=== PATIENT | female | born 1985 | race American Indian/Alaskan Native ===

== ENCOUNTER 2019-02-20 08:26 | Emergency (ER) | payer MEDICAID, OTHER ==
--- NOTE | 2019-02-20 08:35 | EDM.PDOC ---
ED HPI GENERAL MEDICAL PROBLEM - General Chief Complaint: Skin Complaint Stated Complaint: bug bite on leg Time Seen by Provider: 02/20/19 08:30 Source of Information: Reports: Patient History Limitations: Reports: No Limitations - History of Present Illness INITIAL COMMENTS - FREE TEXT/NARRATIVE: History of present illness: []Patient has had a few insect bites on her posterior left thigh with oozing but is now healing and she has another one with large surrounding erythematous raised area that is tender. There is no drainage from this wound at this time. Patient states she may have had a fever but has not measured a temperature. Patient is up-to-date with tetanus. She denies being . Review of systems: As per history of present illness and below otherwise all systems reviewed and negative. Past medical history: As per history of present illness and as reviewed below otherwise noncontributory. Surgical history: As per history of present illness and as reviewed below otherwise noncontributory. Social history: No reported history of drug or alcohol abuse. Family history: As per history of present illness and as reviewed below otherwise noncontributory. Physical exam: General: Well developed, well nourished in NAD HEENT: Atraumatic, normocephalic, pupils reactive, negative for conjunctival pallor or scleral icterus, mucous membranes moist, throat clear, neck supple, nontender, trachea midline. Lungs: Clear to auscultation, breath sounds equal bilaterally, chest nontender. Heart: S1S2, regular, negative for clicks, rubs, or JVD. Abdomen: NABS, Soft, nondistended, nontender. Negative for masses or hepatosplenomegaly. Negative for costovertebral tenderness. Pelvis: Stable nontender. Genitourinary: Deferred. Rectal: Deferred. Extremities: 12 x 10 cm raised mildly erythematous lesion on posterior left thigh there is a 1 x 1 cm indurated slightly raised erythematous area in the middle of this lesion. There is no drainage or fluctuance palpable, negative for cords or calf pain. Neurovascular unremarkable. Neuro: Awake, alert, oriented. Cranial nerves II through XII unremarkable. Cerebellum unremarkable. Motor and sensory unremarkable throughout. Exam nonfocal. Skin:warm and dry Diagnostics: Vital signs stable afebrile Therapeutics: None ED Course: Stable Impression: Cellulitis left thigh Prescriptions: Bactrim, diclofenac Plan: Take meds as directed, follow up with your primary care physician, return to ER if symptoms worsen or change. Definitive disposition and diagnosis as appropriate pending reevaluation and review of above. Left Upper Posterior Leg Pain Score (Numeric/FACES): 6 - Related Data Allergies Allergy/AdvReac Type Severity Reaction Status Date / Time No Known Allergies Allergy Verified 02/20/19 08:38 Home Meds: Home Meds Diclofenac Sodium [Voltaren] 75 mg PO BIDMEALS PRN #20 tab.cr 02/20/19 [Rx] Sulfamethoxazole/Trimethoprim [Bactrim Ds Tablet] 1 each PO BID #20 tablet 02/20 [Rx] ED ROS GENERAL - Review of Systems Review Of Systems: See Below ED EXAM, SKIN/RASH Exam: See Below Course - Vital Signs Last Recorded V/S: Last Vital Signs Temp 97.3 F 02/20/19 08:38 Pulse 72 02/20/19 08:38 Resp 15 02/20/19 08:38 BP 114/72 02/20/19 08:38 Pulse Ox 96 02/20/19 08:38 Departure - Departure Time of Disposition: 09:05 Disposition: Home, Self-Care 01 Condition: Good Clinical Impression: Insect bite of thigh Qualifiers: Encounter type: initial encounter Laterality: left Qualified Code(s): S70.362A - Insect bite (nonvenomous), left thigh, initial encounter Cellulitis Qualifiers: Site of cellulitis: extremity Site of cellulitis of extremity: lower extremity Laterality: left Qualified Code(s): L03.116 - Cellulitis of left lower limb - Discharge Information *PRESCRIPTION DRUG MONITORING PROGRAM REVIEWED*: Not Applicable *COPY OF PRESCRIPTION DRUG MONITORING REPORT IN PATIENT MATI: Not Applicable Prescriptions: Diclofenac Sodium [Voltaren] 75 mg PO BIDMEALS PRN #20 tab.cr PRN Reason: Pain Sulfamethoxazole/Trimethoprim [Bactrim Ds Tablet] 1 each PO BID #20 tablet Referrals: PCP,Unknown [Primary Care Provider] - Forms: ED Department Discharge Additional Instructions: The following information is given to patients seen in the emergency department who are being discharged to home. This information is to outline your options for follow-up care. We provide all patients seen in our emergency department with a follow-up referral. The need for follow-up, as well as the timing and circumstances, are variable depending upon the specifics of your emergency department visit. If you don't have a primary care physician on staff, we will provide you with a referral. We always advise you to contact your personal physician following an emergency department visit to inform them of the circumstance of the visit and for follow-up with them and/or the need for any referrals to a consulting specialist. The emergency department will also refer you to a specialist when appropriate. This referral assures that you have the opportunity for follow-up care with a specialist. All of these measure are taken in an effort to provide you with optimal care, which includes your follow-up. Under all circumstances we always encourage you to contact your private physician who remains a resource for coordinating your care. When calling for follow-up care, please make the office aware that this follow-up is from your recent emergency room visit. If for any reason you are refused follow-up, please contact the [facility] Emergency Department at and asked to speak to the emergency department charge nurse. Take meds as directed, follow up with your primary care physician, return to ER if symptoms worsen or change. [facility] [address] [place] [id number]
== END 2019-02-20 09:12 | disposition home or self-care (01) ==
LOC: MW.ED 08:26
DX: S70.362A Insect bite (nonvenomous), left thigh, initial encounter (principal); L03.116 Cellulitis of left lower limb; Z79.899 Other long term (current) drug therapy; W57.XXXA Bitten or stung by nonvenomous insect and other nonvenomous arthropods, initial encounter
CPT/HCPCS: 99282

== ENCOUNTER 2019-11-08 14:01 | Emergency (ER) | payer MEDICAID, OTHER ==
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
--- NOTE | 2019-11-08 15:17 | CR ---
Left knee: AP, lateral and sunrise patellar views left knee were obtained. Comparison: No previous knee exam. Medial and lateral joint compartments are maintained in height. No joint effusion is seen. Patellofemoral joint appears within normal limits. No fracture or other bony abnormality is seen. Impression: 1. No abnormality is appreciated on 3 view left knee exam. Diagnostic code #1 This report was dictated in MDT
== END 2019-11-08 15:54 | disposition home or self-care (01) ==
LOC: MW.ED 14:01
DX: S81.012A Laceration without foreign body, left knee, initial encounter (principal); V00.141A Fall from scooter (nonmotorized), initial encounter
CPT/HCPCS: 73562-26-LT; 73562-LT; 99282; 99283-25

== ENCOUNTER 2020-02-20 18:17 | Emergency (ER) | payer MEDICAID, OTHER ==
[2020-02-20] MEDS ORDERED: Albuterol/Ipratropium 3.0-0.5 MG/3 ML Neb Soln NEB ONE (18:36)
--- NOTE | 2020-02-20 19:00 | EDM.PDOC ---
<Krzysztof Desai - Last Filed: 02/20/20 18:59> ED HPI GENERAL MEDICAL PROBLEM - General Chief Complaint: Respiratory Problem Stated Complaint: CHEST CONGESTION Time Seen by Provider: 02/20/20 18:34 Source of Information: Reports: Patient History Limitations: Reports: No Limitations - History of Present Illness INITIAL COMMENTS - FREE TEXT/NARRATIVE: 34F no PMHx former TOB use presents for cough, congestion, lethargy, generalized weakness x3 days. Worsening. No fevers. No N/V. No sore throat. No known covid exposure. body, joints Pain Score (Numeric/FACES): 4 - Related Data Allergies Allergy/AdvReac Type Severity Reaction Status Date / Time No Known Allergies Allergy Verified 02/20/20 18:29 Home Meds: Home Meds Albuterol Sulfate [Proair Respiclick] 90 mcg IH Q6HR PRN #1 canister 02/20/20 [Rx] Multivitamin [Multivitamins] 1 tab PO DAILY 02/20/20 [History] predniSONE [Prednisone] 60 mg PO DAILY 5 Days #15 tablet 02/20/20 [Rx] Past Medical History - Past Health History Medical/Surgical History: Denies Medical/Surgical History HEENT History: Reports: None Cardiovascular History: Reports: None Respiratory History: Reports: None Gastrointestinal History: Reports: None Genitourinary History: Reports: None 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: 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: None Musculoskeletal History: Reports: None Neurological History: Reports: None Psychiatric History: Reports: None Endocrine/Metabolic History: Reports: None Hematologic History: Reports: None Immunologic History: Reports: None Oncologic (Cancer) History: Reports: None Dermatologic History: Reports: None - Infectious Disease History Infectious Disease History: Reports: Chicken Pox - Past Surgical History Head Surgeries/Procedures: Reports: None Social & Family History - Family History Family Medical History: Noncontributory - Tobacco Use Smoking Status *Q: Former Smoker Used Tobacco, but Quit: Yes Month/Year Tobacco Last Used: November 2019 - Caffeine Use Caffeine Use: Reports: Coffee - Recreational Drug Use Recreational Drug Use: No ED ROS GENERAL - Review of Systems Review Of Systems: Comprehensive ROS is negative, except as noted in HPI. ED EXAM, GENERAL - Physical Exam Exam: See Below Exam Limited By: No Limitations General Appearance: Alert, WD/WN, No Apparent Distress Throat/Mouth: Normal Voice, No Airway Compromise Head: Atraumatic, Normocephalic Neck: Normal Inspection Respiratory/Chest: No Respiratory Distress, Rhonchi, Wheezing Cardiovascular: Normal Peripheral Pulses, Regular Rate, Rhythm, No Edema Extremities: Normal Inspection Neurological: Alert Psychiatric: Normal Affect, Normal Mood Skin Exam: Warm, Dry, Intact, Normal Color, No Rash Course - Re-Assessments/Exams Free Text/Narrative Re-Assessment/Exam: 02/20/20 19:00 Will get CXR and covid swab. Will give duoneb. Will sign out ot [facility] ED doctor to f/u results and reassessment Departure - Departure Disposition: Home, Self-Care 01 Clinical Impression: Bronchitis - Discharge Information Prescriptions: predniSONE [Prednisone] 60 mg PO DAILY 5 Days #15 tablet Albuterol Sulfate [Proair Respiclick] 90 mcg IH Q6HR PRN #1 canister PRN Reason: Dyspnea Instructions: Shortness of Breath, Adult, [id number], Upper Respiratory Infection, Adult, [id number], Metered Dose Inhaler (No Spacer Used), Acute Bronchitis, Adult, [id number], How to Use a Dry Powder Inhaler Referrals: Jessica Salas, [employer] [Primary Care Provider] - (followup as needed) Forms: ED Department Discharge Additional Instructions: Your chest x-ray and COVID swab were both negative for any signs of pneumonia or coronavirus. You may use the albuterol inhaler as needed. Please take the prednisone for the next 4 to 5 days, for 60 mg once daily. Return to the ER if you develop any worsening difficulty breathing. The following information is given to patients seen in the emergency department who are being discharged to home. This information is to outline your options for follow-up care. We provide all patients seen in our emergency department with a follow-up referral. The need for follow-up, as well as the timing and circumstances, are variable depending upon the specifics of your emergency department visit. If you don't have a primary care physician on staff, we will provide you with a referral. We always advise you to contact your personal physician following an emergency department visit to inform them of the circumstance of the visit and for follow-up with them and/or the need for any referrals to a consulting specialist. The emergency department will also refer you to a specialist when appropriate. This referral assures that you have the opportunity for follow-up care with a specialist. All of these measure are taken in an effort to provide you with optimal care, which includes your follow-up. Under all circumstances we always encourage you to contact your private rachel catan who remains a resource for coordinating your care. When calling for follow-up care, please make the office aware that this follow-up is from your recent emergency room visit. If for any reason you are refused follow-up, please contact the [facility] Emergency Department at and asked to speak to the emergency department charge nurse. Sepsis Event Note (ED) - Evaluation Sepsis Screening Result: No Definite Risk <Leah Fitzpatrick - Last Filed: 02/20/20 19:54> Course - Vital Signs Text/Narrative:: Patient signed out to me at 7 PM, pending x-ray, COVID swab and symptomatic rel ief. X-ray negative. COVID swab negative, and patient feeling much better after nebulizer treatment. She did just quit smoking 3 months ago and she does also report that she was just staining her deck and felt she may have been exposed to some fumes prior to the onset of her symptoms. Last Recorded V/S: Last Vital Signs Temp 96.3 F L 02/20/20 18:26 Pulse 63 02/20/20 18:26 Resp 18 02/20/20 18:26 BP 114/69 02/20/20 18:26 Pulse Ox 96 02/20/20 18:26 - Orders/Labs/Meds Orders: Active Orders 24 hr Category Date Time Status RT Aerosol Therapy [RC] ASDIRECTED Care 02/20/20 18:37 Active predniSONE Med 02/20/20 19:51 Once 60 mg PO ONETIME ONE Labs: Laboratory Tests 02/20/20 Range/Units 19:00 COVID-19 ([facility]) NEGATIVE (NEGATIVE) Meds: Medications Discontinued Medications Generic Name Dose Route Start Last Admin Trade Name Freq PRN Reason Stop Dose Admin Albuterol/Ipratropium 3 ml 02/20/20 18:36 02/20/20 18:47 Duoneb 3.0-0.5 Mg/3 Ml NEB 02/20/20 18:37 3 ml ONETIME ONE Administration Prednisone 60 mg 02/20/20 19:51 Prednisone PO 02/20/20 19:52 ONETIME ONE - Re-Assessments/Exams Free Text/Narrative Re-Assessment/Exam: 02/20/20 19:52 Reports she is feeling much better on reassessment. She has no difficulty breathing. Discussed all results and plan of care with the patient. Will give dose of prednisone here prior to discharge and sent prescriptions for albuterol HFA and prednisone to her preferred pharmacy. Departure - Departure Time of Disposition: 19:52 Sepsis Event Note (ED) - Focused Exam Vital Signs: Vital Signs Temp Pulse Resp BP Pulse Ox 02/20/20 18:26 96.3 F L 63 18 114/69 96 - My Orders Last 24 Hours: My Active Orders 02/20/20 19:51 predniSONE 60 mg PO ONETIME ONE - Assessment/Plan Last 24 Hours: My Active Orders 02/20/20 19:51 predniSONE 60 mg PO ONETIME ONE
--- NOTE | 2020-02-20 19:24 | CR ---
Chest: Portable view of the chest was obtained. Comparison: No prior chest imaging is available. Heart size and mediastinum are normal. Lungs are clear with no acute parenchymal change. Bony structures are unremarkable. Impression: 1. Nothing acute is seen on portable chest x-ray. Diagnostic code #1 This report was dictated in MDT
[2020-02-20] MEDS ORDERED: predniSONE 20 MG Tab PO ONE (19:51)
== END 2020-02-20 20:15 | disposition left against medical advice (07) ==
LOC: MW.ED 18:17
DX: J40 Bronchitis, not specified as acute or chronic (principal); Z20.828 Contact with and (suspected) exposure to other viral communicable diseases; Z87.891 Personal history of nicotine dependence
CPT/HCPCS: 71045; 71045-26; 94640; 99283; 99284-25; J7620-GY; U0002

== ENCOUNTER 2021-01-04 21:01 | Emergency (ER) | payer MEDICAID ==
--- NOTE | 2021-01-04 22:03 | EDM.PDOC ---
ED HPI GENERAL MEDICAL PROBLEM - General Chief Complaint: ENT Problem Stated Complaint: POSSABLE STREPTHROAT Time Seen by Provider: 01/04/21 21:26 Source of Information: Reports: Patient History Limitations: Reports: No Limitations - History of Present Illness INITIAL COMMENTS - FREE TEXT/NARRATIVE: HISTORY AND PHYSICAL: History of present illness: Patient is a 35-year-old female who presents to the ED today with concern of sore throat x2 days. Patient states that when she looked in the mirror today, she started noticing that she has white spots developing on her tonsils. Patient states that she has had frequent strep throat and this feels typical of her strep throat and states that the white spots is typical of when she has had strep throat in the past. Patient states that she is able to eat and drink but does have pain with swallowing. Patient denies any other associated symptoms. Patient denies fever, chills, chest pain, shortness of breath, or cough. Denies headache, neck stiff ness, change in vision, syncope, or near syncope. Denies nausea, vomiting, abdominal pain, diarrhea, constipation, or dysuria. Has not noted any blood in urine or stool. Patient has been eating and drinking appropriately. Review of systems: As per history of present illness and below otherwise all systems reviewed and negative. Past medical history: As per history of present illness and as reviewed below otherwise noncontributory. Surgical history: As per history of present illness and as reviewed below otherwise noncontributory. Social history: See social history for further information Family history: As per history of present illness and as reviewed below otherwise noncontributory. Physical exam: General: Patient is alert, oriented, and in no acute distress. Patient sitting comfortably on exam table. Vitals stable and reviewed by me. HEENT: Atraumatic, normocephalic, pupils equal and reactive bilaterally, negative for conjunctival pallor or scleral icterus, mucous membranes moist, TMs normal bilaterally, throat is erythematous and tonsils mildly enlarged with white exudate, uvula midline, neck supple, nontender, trachea midline. No drooling or trismus noted. No meningeal signs. No hot potato voice noted. Lungs: Clear to auscultation, breath sounds equal bilaterally, chest nontender. Heart: S1S2, regular rate and rhythm without overt murmur Abdomen: Soft, nondistended, nontender. Negative for masses or hepatosplenomegaly. Negative for costovertebral tenderness. Pelvis: Stable nontender. Genitourinary: Deferred. Rectal: Deferred. Skin: Intact, warm, dry. No lesions or rashes noted. Extremities: Atraumatic, negative for cords or calf pain. Neurovascular unremarkable. Neuro: Awake, alert, oriented. Cranial nerves II through XII unremarkable. Cerebellum unremarkable. Motor and sensory unremarkable throughout. Exam nonfocal. Notes: Signs and symptoms are prompt return to the ED thoroughly discussed with patient. Discussed importance for follow-up with a primary care provider. Voices understanding and is agreeable to plan of care. Denies any further questions or concerns at this time. Diagnostics: None Therapeutics: None Prescription: Amoxicillin Impression: Pharyngitis Plan: 1. Use cough drops and/or other over the counter medications as needed for throat discomfort as discussed. Drink small but frequent sips of fluid to pre vent dehydration. 2. Alternate Ibuprofen and Tylenol as directed for pain and discomfort. Take medication as prescribed 3. Follow up with your primary care provider as discussed. 4. Return to the ED as needed and as discussed. Definitive disposition and diagnosis as appropriate pending reevaluation and review of above. Left Anterior Throat Pain Score (Numeric/FACES): 5 - Related Data Allergies Allergy/AdvReac Type Severity Reaction Status Date / Time No Known Allergies Allergy Verified 02/20/20 18:29 Home Meds: Home Meds Albuterol Sulfate [Proair Respiclick] 90 mcg IH Q6HR PRN #1 canister 02/20/20 [Rx] Multivitamin [Multivitamins] 1 tab PO DAILY 02/20/20 [History] predniSONE [Prednisone] 60 mg PO DAILY 5 Days #15 tablet 02/20/20 [Rx] Past Medical History - Past Health History Medical/Surgical History: Denies Medical/Surgical History HEENT History: Reports: None Cardiovascular History: Reports: None Respiratory History: Reports: None Gastrointestinal History: Reports: None Genitourinary History: Reports: None 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 Musculoskeletal History: Reports: None Neurological History: Reports: None Psychiatric History: Reports: None Endocrine/Metabolic History: Reports: None Hematologic History: Reports: None Immunologic History: Reports: None Oncologic (Cancer) History: Reports: None Dermatologic History: Reports: None - Infectious Disease History Infectious Disease History: Reports: Chicken Pox - Past Surgical History Head Surgeries/Procedures: Reports: None Social & Family History - Family History Family Medical History: No Pertinent Family History - Tobacco Use Tobacco Use Status *Q: Never Tobacco User - Caffeine Use Caffeine Use: Reports: Coffee - Recreational Drug Use Recreational Drug Use: No ED ROS GENERAL - Review of Systems Review Of Systems: Comprehensive ROS is negative, except as noted in HPI. ED EXAM, GENERAL - Physical Exam Exam: See Below (see dictation) Course - Vital Signs Last Recorded V/S: Last Vital Signs Temp 98.0 F 01/04/21 21:23 Pulse 70 01/04/21 21:23 Resp 16 01/04/21 21:23 BP 108/73 01/04/21 21:23 Pulse Ox 98 01/04/21 21:23 - Orders/Labs/Meds Orders: Active Orders 24 hr Category Date Time Status STREP A BY PCR [[facility]] Stat Lab 01/04/21 21:14 Stop Req Departure - Departure Time of Disposition: 21:59 Disposition: Home, Self-Care 01 Clinical Impression: Pharyngitis Qualifiers: Pharyngitis/tonsillitis etiology: unspecified etiology Qualified Code(s): J02.9 - Acute pharyngitis, unspecified - Discharge Information Referrals: Jessica Salas AGRICULTURAL EXTENSION EDUCATOR [Primary Care Provider] - Additional Instructions: The following information is given to patients seen in the emergency department who are being discharged to home. This information is to outline your options for follow-up care. We provide all patients seen in our emergency department with a follow-up referral. The need for follow-up, as well as the timing and circumstances, are variable depending upon the specifics of your emergency department visit. If you don't have a primary care physician on staff, we will provide you with a referral. We always advise you to contact your personal physician following an emergency department visit to inform them of the circumstance of the visit and for follow-up with them and/or the need for any referrals to a consulting specialist. The emergency department will also refer you to a specialist when appropriate. This referral assures that you have the opportunity for follow-up care with a specialist. All of these measure are taken in an effort to provide you with optimal care, which includes your follow-up. Under all circumstances we always encourage you to contact your private physician who remains a resource for coordinating your care. When calling for follow-up care, please make the office aware that this follow-up is from your recent emergency room visit. If for any reason you are refused follow-up, please contact the [facility] Emergency Department at and asked to speak to the emergency department charge nurse. [facility] [address] [place] [address] [facility] [address] [place] [id number] 1. Use cough drops and/or other over the counter medications as needed for throat discomfort as discussed. Drink small but frequent sips of fluid to prevent dehydration. 2. Alternate Ibuprofen and Tylenol as directed for pain and discomfort. Take medication as prescribed. 3. Follow up with your primary care provider as discussed. 4. Return to the ED as needed and as discussed. Sepsis Event Note (ED) - Evaluation Sepsis Screening Result: No Definite Risk - Focused Exam Vital Signs: Vital Signs Temp Pulse Resp BP Pulse Ox 01/04/21 21:23 98.0 F 70 16 108/73 98 - My Orders Last 24 Hours: My Active Orders 01/04/21 21:14 STREP A BY PCR [[facility]LEC] Stat - Assessment/Plan Last 24 Hours: My Active Orders 01/04/21 21:14 STREP A BY PCR [MOLEC] Stat
== END 2021-01-04 22:19 | disposition home or self-care (01) ==
LOC: MW.ED 21:01
DX: J02.9 Acute pharyngitis, unspecified (principal)
CPT/HCPCS: 87651-QW; 99283

== ENCOUNTER 2022-08-18 11:27 | Emergency (ER) | payer MEDICAID ==
[2022-08-18 14:23] LABS: CORONAVIRUS COVID-19 NAA NEGATIVE (NEGATIVE); INFLUENZA A NAA NEGATIVE (NEGATIVE); INFLUENZA B NAA NEGATIVE (NEGATIVE)
[2022-08-18] MEDS ORDERED: predniSONE 20 MG Tab PO STA (15:20)
== END 2022-08-18 16:16 | disposition home or self-care (01) ==
LOC: MW.ED 11:27
DX: M25.561 Pain in right knee (principal); L50.9 Urticaria, unspecified; J11.1 Influenza due to unidentified influenza virus with other respiratory manifestations; Z20.822 Contact with and (suspected) exposure to COVID-19
CPT/HCPCS: 0240U; 73562; 99283; A9270

== ENCOUNTER 2022-08-22 11:10 | Observation (INO) | payer MEDICAID ==
[2022-08-22] MEDS ORDERED: Sodium Chloride 0.9% 1,000 ML IV ONE (11:28)
[2022-08-22] MEDS ORDERED: Ketorolac 30 MG/ML SDV IVPUSH ONE (11:28)
[2022-08-22] MEDS ORDERED: Sodium Chloride 0.9% 10 ML Syringe FLUSH PRN (11:28)
[2022-08-22] MEDS ORDERED: Sodium Chloride 0.9% 2.5 ML Syringe FLUSH PRN (11:28)
[2022-08-22 12:45] LABS: CARBON DIOXIDE,CO2 24.1 mmol/L (21.0-32.0); POTASSIUM,K 3.4 mmol/L (3.5-5.1)
[2022-08-22] MEDS ORDERED: Iopamidol 755 MG/ML 500 ML Multipack Bottle IVPUSH ONE (15:31)
[2022-08-22] MEDS ORDERED: Acetaminophen 325 MG Tab PO PRN (21:39)
[2022-08-22] MEDS ORDERED: Ibuprofen 400 MG Tab PO PRN (21:40)
[2022-08-23 06:46] LABS: CARBON DIOXIDE,CO2 25.9 mmol/L (21.0-32.0); POTASSIUM,K 3.3 mmol/L (3.5-5.1)
[2022-08-23 18:02] LABS: BORDETELLA PARAPERT IS1001 Not Detected (Not Detected)
== END 2022-08-23 11:50 | disposition home or self-care (01) ==
LOC: MW.ED 11:10 → MW.MS 16:51
PROVIDERS: ADMIT Internal Medicine; ATTEND Internal Medicine
DX: D72.829 Elevated white blood cell count, unspecified (principal); D64.9 Anemia, unspecified; R79.89 Other specified abnormal findings of blood chemistry; M25.50 Pain in unspecified joint; R21 Rash and other nonspecific skin eruption; Z87.891 Personal history of nicotine dependence; Z20.822 Contact with and (suspected) exposure to COVID-19
CPT/HCPCS: 36415; 71045; 74177; 80053; 81001; 81025; 82550; 82945; 83605; 83615; 84157; 84443; 85025; 85652; 86038; 86140; 86200; 86308; 86431; 86747; 86790; 87040; 87070; 87086; 87205; 87252; 87389; 87486; 87581; 87633; 87798; 89050; 96361; 96374; 99285; A9270; G0378; J1885; J3490; J7030; Q9967; 99221

== ENCOUNTER 2022-09-10 18:47 | Emergency (ER) | payer MEDICAID ==
[2022-09-10] MEDS ORDERED: Acetaminophen 325 MG Tab PO ONE (19:08)
[2022-09-10] MEDS ORDERED: Lactated Ringers 1,000 ML IV SCH (19:15)
[2022-09-10] MEDS ORDERED: Ketorolac 30 MG/ML SDV IVPUSH ONE (19:40)
[2022-09-10] MEDS ORDERED: Piperacillin/Tazobactam 4.5 GM in Sodium Chloride 0.9% 100 ML IV ONE (19:42)
[2022-09-10] MEDS ORDERED: VANCOmycin 1.5 GM/300 ML 300 ML IV ONE (20:00)
[2022-09-10 20:20] LABS: POTASSIUM,K 3.8 mmol/L (3.5-5.1)
[2022-09-10 20:27] LABS: CORONAVIRUS COVID-19 NAA NEGATIVE (NEGATIVE); INFLUENZA A NAA NEGATIVE (NEGATIVE); INFLUENZA B NAA NEGATIVE (NEGATIVE); RESPIRATORY SYNCYTIAL VIR NAA NEGATIVE (NEGATIVE)
[2022-09-10] MEDS ORDERED: Iopamidol 755 MG/ML 500 ML Multipack Bottle IVPUSH STA (21:09)
== END 2022-09-10 22:30 ==
LOC: MW.ED 18:47
DX: D72.829 Elevated white blood cell count, unspecified (principal); D64.9 Anemia, unspecified; R50.9 Fever, unspecified; Z20.822 Contact with and (suspected) exposure to COVID-19; Z79.899 Other long term (current) drug therapy
CPT/HCPCS: 0241U; 36415; 70450; 71260; 74177; 80053; 83605; 83690; 83735; 83880; 84443; 84484; 84703; 85025; 85610; 85613; 85652; 85730; 86038; 86140; 86431; 86850; 86900; 86901; 87040; 87077; 87154; 93005; 96365; 96367; 96375; 99285; A9270; J1885; J2543; J3370; J3490; J7120; Q9967; 93010; 99291; 99292

== ENCOUNTER 2023-04-27 11:38 | Emergency (ER) | payer MEDICAID ==
[2023-04-27] MEDS ORDERED: Albuterol/Ipratropium 3.0-0.5 MG/3 ML Neb Soln NEB STA (12:32)
[2023-04-27] MEDS ORDERED: Benzonatate 100 MG Cap PO STA (13:14)
[2023-04-27 13:28] LABS: CORONAVIRUS COVID-19 NAA NEGATIVE (NEGATIVE); INFLUENZA A NAA NEGATIVE (NEGATIVE); INFLUENZA B NAA NEGATIVE (NEGATIVE)
== END 2023-04-27 14:50 | disposition home or self-care (01) ==
LOC: MW.ED 11:38
DX: J18.9 Pneumonia, unspecified organism (principal); Z20.822 Contact with and (suspected) exposure to COVID-19; Z79.899 Other long term (current) drug therapy
CPT/HCPCS: 0240U; 71046; 99285; A9270; 99283; J7620-GY